=== PATIENT | male | born 1975 | race Caucasian/White ===

== ENCOUNTER 2017-03-27 08:28 | Emergency (ER) | payer SELFPAY ==
[~2017-03-27] VITALS: Ht 172.7 cm; Wt 100.0 kg
[~2017-03-27 08:28] MED LIST: CLIN150 PO; ESCI10TA PO; IBUP800T23 PO; LIDO2SOL SS; SERO150T PO
[2017-03-27 08:31] VITALS: BP 143/85; PULSE 72; RESP 14; TEMP 97.9; O2SAT 99
== END 2017-03-27 08:38 | disposition left against medical advice (07) ==
LOC: NEPK 08:28
DX: H57.11 Ocular pain, right eye (principal)
CPT/HCPCS: 99281

== ENCOUNTER 2018-03-06 05:12 | Emergency (ER) | payer OTHER ==
[~2018-03-06] VITALS: Ht 175.3 cm; Wt 91.0 kg
[~2018-03-06 05:12] MED LIST changes: -CLIN150 PO; -LIDO2SOL SS
[2018-03-06 05:27] VITALS: BP 119/75; PULSE 79; RESP 18; TEMP 97.6; O2SAT 99
[2018-03-06] MEDS ORDERED: LEVO75TA3 PO (05:36)
[2018-03-06] MEDS ORDERED: TRAZ50TA12 PO (05:36)
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
[2018-03-06] MEDS ORDERED: MORPHINE SULFATE 4 MG/ML INJ IV PUSH ONE (05:45)
[2018-03-06] MEDS ORDERED: ceFAZolin 2 GM PREMIX 100 ML IV ONE (05:45)
[2018-03-06] MEDS ORDERED: IOHEXOL 350 MG/ML 10 ML VIAL (for RAD DIAG) IVCONTRAST ONE (05:52)
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
[2018-03-06 06:32] LABS: AUTOMATED NEUTROPHIL # 6.8 TH/MM3 (1.8-7.7); BASOPHIL % 0.4 % (0.0-2.0); EOSINOPHIL # 0.2 TH/MM3 (0-0.4); EOSINOPHIL % 1.7 % (0.0-4.0); HEMATOCRIT 40.9 % (39.0-51.0); HEMOGLOBIN 13.8 GM/DL (13.0-17.0); LYMPH % 23.2 % (9.0-44.0); LYMPHOCYTE # 2.3 TH/MM3 (1.0-4.8); MEAN CELL VOLUME 86.3 FL (80.0-100.0); MEAN CORPUSCULAR HEMOGLOBIN 29.2 PG (27.0-34.0); MEAN CORPUSCULAR HGB CONC 33.8 % (32.0-36.0); MEAN PLATELET VOLUME 8.4 FL (7.0-11.0); MONO % 7.1 % (0.0-8.0); MONOCYTE # 0.7 TH/MM3 (0-0.9); NEUT % 67.6 % (16.0-70.0); PLATELET COUNT 359 TH/MM3 (150-450); RED BLOOD COUNT 4.73 MIL/MM3 (4.50-5.90); RED CELL DISTRIBUTION WIDTH 14.3 % (11.6-17.2)
[2018-03-06] MEDS ORDERED: BACL20TA PO (06:32)
[2018-03-06] MEDS ORDERED: KETO10 PO (06:32)
[2018-03-06 06:42] LABS: BICARBONATE 25.8 MEQ/L (21.0-32.0); BLOOD UREA NITROGEN 17 MG/DL (7-18); CHLORIDE 105 MEQ/L (98-107); CREATININE 1.32 MG/DL (0.60-1.30); GLOMERULAR FILTRATION RATE 59 ML/MIN (>89); GLUCOSE,RANDOM 122 MG/DL (74-106); SODIUM (NA) 141 MEQ/L (136-145)
[2018-03-06 07:00] VITALS: BP 127/73
== END 2018-03-06 07:15 | disposition home or self-care (01) ==
LOC: NEPC 05:12
DX: S20.219A Contusion of unspecified front wall of thorax, initial encounter (principal); V89.2XXA Person injured in unspecified motor-vehicle accident, traffic, initial encounter
CPT/HCPCS: 70450; 71260; 72125; 73130; 74177; 80048; 80307; 85025; 96374; 96375; 99284; J0690; J2270; Q9967